=== PATIENT | male | born 1935 | race Two or more races ===

== ENCOUNTER 2023-05-17 02:05 | Emergency (ER) | payer OTHER ==
[~2023-05-17] VITALS: Ht 160 cm; Wt 68.0 kg
[2023-05-17] MEDS ORDERED: TENORMIN25 MG PO (02:24)
[2023-05-17] MEDS ORDERED: VASOFLEX HD CA1 EACH PO (02:24)
[2023-05-17] MEDS ORDERED: ELIQUIS5 MG PO (02:24)
[2023-05-17] MEDS ORDERED: EPLERENONE25 MG (02:25)
[2023-05-17] MEDS ORDERED: IRBESARTAN150 MG PO (02:25)
[2023-05-17 03:38] LABS: HEMATOCRIT 43.1 % (39.0-48.0); HEMOGLOBIN 14.1 g/dL (13-16.00); MEAN CORPUSCULAR HEMOGLOBIN 31.2 pg (27.00-32.0); MEAN CORPUSCULAR HGB CONC 32.8 g/dl (32.0-36.0); RED BLOOD COUNT 4.54 M/uL (4.00-6.00); RED CELL DISTRIBUTION WIDTH 14.2 % (11.5-14.5)
[2023-05-17 03:49] LABS: PLATELET COUNT 110 K/uL (150-450)
[2023-05-17 04:00] LABS: ALBUMIN 4.2 gm/dL (3.4-5.0); BILIRUBIN TOTAL 1.25 mg/dL (0.3-1.2); CALCIUM 9.8 mg/dL (8.5-10.1); CREATININE SERUM 0.76 mg/dL (0.70-1.30); GFR 97.48; GLOBULINA 3.6 G/DL (2.4-3.5); INR 1.26; PARTIAL THROMBOPLASTIN TIME 32.9 SECONDS (22.0-34.0); POTASSIUM 4.39 mEq/L (3.5-5.1); TOTAL PROTEIN 7.8 gm/dL (6.4-8.2)
[2023-05-17 04:29] LABS: PH,URINE 6.5 (5.0-8.0); URINE APPEARANCE Clear; URINE BILIRRUBIN Negative (NEGATIVE); URINE BLOOD Negative; URINE COLOR Yellow; URINE GLUCOSE Negative (NEGATIVE); URINE LEUKOCYTE Negative; URINE NITRATE Negative; URINE PROTEIN Negative (NEGATIVE); URINE UROBILINOGEN 0.2 E.U./dl
[2023-05-17 04:38] LABS: URINE BACTERIA 1.2 uL (0.0-1933); URINE RBC 0.8 uL (0.0-20.8); URINE WBC 0 uL (0.0-23.2)
== END 2023-05-17 12:29 | disposition home or self-care (01) ==
LOC: EDBD 02:05 → ER 02:05
PROVIDERS: General Practice
DX: I48.91 Unspecified atrial fibrillation (principal); I10 Essential (primary) hypertension
CPT/HCPCS: 36415; 71045; 93005; 93041; 96365; 99284; J3490

== ENCOUNTER 2024-03-31 16:42 | Inpatient (IN) | payer OTHER ==
[~2024-03-31] VITALS: Ht 160 cm; Wt 66.7 kg
[~2024-03-31 16:42] MED LIST: ELIQUIS5 MG PO; EPLERENONE25 MG; IRBESARTAN150 MG PO; TENORMIN25 MG PO; VASOFLEX HD CA1 EACH PO
[2024-03-31 16:56] LABS: PH,URINE 6.5 (5.0-8.0); URINE APPEARANCE Clear; URINE BILIRRUBIN Negative (NEGATIVE); URINE BLOOD Negative; URINE COLOR Yellow; URINE GLUCOSE Negative (NEGATIVE); URINE KETONE Negative (NEGATIVE); URINE LEUKOCYTE Negative; URINE NITRATE Negative; URINE PROTEIN Negative (NEGATIVE); URINE UROBILINOGEN 0.2 E.U./dl
[2024-03-31 16:57] LABS: URINE BACTERIA 13.8 uL (0.0-1933)
[2024-03-31 16:58] LABS: URINE EPITHELIAL CELLS 0.6 uL (0.0-38.8); URINE RBC 0.1 uL (0.0-20.8); URINE WBC 0.9 uL (0.0-23.2)
[2024-03-31 17:27] LABS: HEMATOCRIT 35.8 % (39.0-48.0); HEMOGLOBIN 12.4 g/dL (13-16.00); MEAN CELL VOLUME 92.8 fL (80.0-100.00); MEAN CORPUSCULAR HEMOGLOBIN 32.1 pg (27.00-32.0); MEAN CORPUSCULAR HGB CONC 34.6 g/dl (32.0-36.0); RED BLOOD COUNT 3.86 M/uL (4.00-6.00); RED CELL DISTRIBUTION WIDTH 13.8 % (11.5-14.5)
[2024-03-31 17:39] LABS: PLATELET COUNT 103 K/uL (150-450)
[2024-03-31 18:27] LABS: ALBUMIN 4.1 gm/dL (3.4-5.0); BILIRUBIN TOTAL 1.39 mg/dL (0.3-1.2); CALCIUM 9.4 mg/dL (8.5-10.1); CREATININE SERUM 0.86 mg/dL (0.70-1.30); GFR 84.32; GLOBULINA 3.3 G/DL (2.4-3.5); POTASSIUM 4.84 mEq/L (3.5-5.1); T4 FREE 1.46 NG/ML (0.76-1.46); TOTAL PROTEIN 7.4 gm/dL (6.4-8.2); TSH 1.02 uIU/mL (0.358-3.74)
[2024-03-31 19:12] LABS: PROSTATIC SPECIFIC ANTIGEN 8.27 NG/ML (0.010-4.00)
[2024-03-31] MEDS ORDERED: NITROGLYCERIN IN 5 % DEXTROSE 250 ML IV SCH (20:15)
[2024-03-31] MEDS ORDERED: ACETAMINOPHEN 500 MG GEL..CAP PO PRN (20:30)
[2024-03-31] MEDS ORDERED: CLONAZEPAM 0.5 MG TABLET PO SCH (21:00)
[2024-03-31] MEDS ORDERED: NITROGLYCERIN IN 5 % DEXTROSE 50 MG/250 ML BOTTLE IV ONE (21:14)
[2024-03-31 22:57] VITALS: O2SAT 97
[2024-03-31 23:30] VITALS: O2SAT 95
[2024-04-01] VITALS (8 sets, daily range): BP systolic 100–144; BP diastolic 51–65; O2SAT 94–97
[2024-04-01] MEDS ORDERED: FUROsemide 20 MG/2 ML VIAL IV SCH (01:00)
[2024-04-01 07:02] LABS: BLOOD UREA NITROGEN 14 mg/dL (7-18); GLUCOSE FASTING 67 mg/dL (65-100); OSMOLALITY SERUM 248 MOSM/KG (275-295)
[2024-04-01 07:49] LABS: SODIUM 124 mmol/L (136-145)
[2024-04-01] MEDS ORDERED: Cyanocobalamin/Mecobalamin 1 TAB.SL SL SCH (09:00)
[2024-04-01] MEDS ORDERED: ALLOPURINOL 100 MG TABLET PO SCH (09:00)
[2024-04-01] MEDS ORDERED: PANTOPRAZOLE SODIUM 40 MG TABLET.DR PO SCH (09:00)
[2024-04-01] MEDS ORDERED: IRBESARTAN 300 MG TABLET PO SCH (09:00)
[2024-04-01] MEDS ORDERED: MAGNESIUM 100 MG PO SCH (09:00)
[2024-04-01] MEDS ORDERED: BISOPROLOL 5 MG PO SCH (09:00)
[2024-04-01] MEDS ORDERED: WARFARIN SODIUM 5 MG TABLET PO SCH (09:00)
[2024-04-01] MEDS ORDERED: ENOXAPARIN SODIUM 60 MG/0.6 ML SYRINGE SUBCUTANEO SCH (09:00)
[2024-04-01] MEDS ORDERED: FINASTERIDE 5 MG TABLET PO SCH (09:20)
[2024-04-01] MEDS ORDERED: NA PHOS,M-B/NA PHOS,DI-BA 1 BOTTLE ENEMA RECTAL NR ×2 (10:00→23:45)
[2024-04-01 16:31] LABS: FERRITIN 343.5 NG/ML (26-388)
[2024-04-01 16:51] LABS: FOLIC ACID 16.73 ng/ml (4.78-20)
[2024-04-01] MEDS ORDERED: AMLODIPINE BESYLATE 5 MG TABLET PO SCH (17:00)
[2024-04-01] MEDS ORDERED: TAMSULOSIN HCL 0.4 MG CAP PO SCH (17:00)
[2024-04-02] VITALS (8 sets, daily range): BP systolic 102–138; BP diastolic 49–63; O2SAT 94–98
[2024-04-02] MEDS ORDERED: SOD FERRIC GLUC COMPLX/SUCROSE 62.5 MG in 0.9 % SODIUM CHLORIDE 50 ML IV SCH (09:00)
[2024-04-02] MEDS ORDERED: PRAMIPEXOLE 0.125 MG PO SCH (09:00)
[2024-04-02] MEDS ORDERED: AMANTADINE 100 MG PO SCH (09:00)
[2024-04-02] MEDS ORDERED: ISOSORBIDE DINITRATE 5 MG TABLET PO SCH (09:00)
[2024-04-02] MEDS ORDERED: CLONAZEPAM 0.5 MG TABLET PO SCH (09:00)
[2024-04-02] MEDS ORDERED: ADEMPAS 1 MG PO SCH (09:00)
[2024-04-02 14:41] LABS: HEMATOCRIT 32.8 % (39.0-48.0); HEMOGLOBIN 11.3 g/dL (13-16.00); MEAN CELL VOLUME 94.5 fL (80.0-100.00); MEAN CORPUSCULAR HEMOGLOBIN 32.5 pg (27.00-32.0); MEAN CORPUSCULAR HGB CONC 34.4 g/dl (32.0-36.0); RED BLOOD COUNT 3.47 M/uL (4.00-6.00); RED CELL DISTRIBUTION WIDTH 13.8 % (11.5-14.5)
[2024-04-02 14:42] LABS: PLATELET COUNT 117 K/uL (150-450)
[2024-04-03] VITALS (8 sets, daily range): BP systolic 130–131; BP diastolic 67–75; O2SAT 96–99
[2024-04-03] MEDS ORDERED: FUERA DE FORMULARIO 1 U FF PO SCH (09:00)
[2024-04-03 09:21] LABS: PLATELET ESTIMATE NORMAL (NORMAL)
[2024-04-03] MEDS ORDERED: FUROsemide 20 MG TABLET PO NR (10:36)
[2024-04-03] MEDS ORDERED: COSYNTROPIN 0.25 MG VIAL IV SCH (11:00)
[2024-04-03 11:11] LABS: ACTH 9.8 pg/mL (7.2-63.3)
[2024-04-03 15:10] LABS: ANTI CARDIO IGG < 9 GPL U/mL (0-14); ANTI CARDIO IGM 10 MPL U/mL (0-12)
[2024-04-03 19:55] LABS: ALBUMIN 3.4 gm/dL (3.4-5.0); BILIRUBIN TOTAL 1.14 mg/dL (0.3-1.2); CREATININE SERUM 0.9 mg/dL (0.70-1.30); GFR 80.01; GLOBULINA 2.8 G/DL (2.4-3.5); POTASSIUM 4.23 mEq/L (3.5-5.1); TOTAL PROTEIN 6.2 gm/dL (6.4-8.2)
[2024-04-04] VITALS (9 sets, daily range): BP systolic 107–132; BP diastolic 59–63; O2SAT 97–100
[2024-04-04] MEDS ORDERED: FUROsemide 20 MG TABLET PO SCH (09:00)
[2024-04-04 12:54] LABS: ob NEGATIVE (NEGATIVE)
[2024-04-04 15:10] LABS: dRVVT 67.8 sec (0.0-47.0); interp Comment: (.); ptt-la 52.9 sec (0.0-43.5)
[2024-04-05] VITALS (7 sets, daily range): BP systolic 115–153; BP diastolic 54–65; O2SAT 97–100
[2024-04-05 05:19] LABS: INR 1.13; PROTHROMBIN TIME 12.2 SECONDS (9.0-11.5)
[2024-04-05 05:30] LABS: CALCIUM 8.9 mg/dL (8.5-10.1); CREATININE SERUM 0.67 mg/dL (0.70-1.30); GFR 112.47; POTASSIUM 3.96 mEq/L (3.5-5.1)
[2024-04-05 05:31] LABS: PROSTATIC SPECIFIC ANTIGEN 6.23 NG/ML (0.010-4.00)
[2024-04-05 05:32] LABS: PARTIAL THROMBOPLASTIN TIME 48.5 SECONDS (22.0-34.0)
[2024-04-05] MEDS ORDERED: BUMETANIDE 1 MG TABLET PO SCH (09:00)
[2024-04-06] VITALS (9 sets, daily range): BP systolic 118–130; BP diastolic 59–63; O2SAT 96–100
[2024-04-07 01:48] VITALS: BP 123/53
[2024-04-07 02:07] VITALS: O2SAT 97
[2024-04-07 05:29] VITALS: O2SAT 95
[2024-04-07 08:00] VITALS: BP 140/72; O2SAT 100
[2024-04-07 08:02] VITALS: O2SAT 99
[2024-04-07 08:05] LABS: HEMATOCRIT 32.4 % (39.0-48.0); MEAN CELL VOLUME 94.5 fL (80.0-100.00); MEAN CORPUSCULAR HEMOGLOBIN 31.9 pg (27.00-32.0); MEAN CORPUSCULAR HGB CONC 33.8 g/dl (32.0-36.0); RED BLOOD COUNT 3.43 M/uL (4.00-6.00)
[2024-04-07] MEDS ORDERED: TAMS0.4C PO (08:34)
[2024-04-07] MEDS ORDERED: ELIQUIS5 MG PO (08:35)
[2024-04-07] MEDS ORDERED: AMLODIPINE BESYL5 MG PO (08:35)
[2024-04-07] MEDS ORDERED: ISOSORBIDE DINIT5 MG PO (08:36)
[2024-04-07] MEDS ORDERED: AVAPRO300 MG PO (08:36)
[2024-04-07] MEDS ORDERED: PANTOPRAZOLE SO40 MG PO (08:37)
[2024-04-07] MEDS ORDERED: CLONAZEPAM0.5 MG PO (08:37)
[2024-04-07] MEDS ORDERED: BUMETANIDE1 MG PO (08:37)
[2024-04-07] MEDS ORDERED: ZYLOPRIM100 M1 PO (08:37)
[2024-04-07] MEDS ORDERED: FINASTERIDE5 MG PO (08:37)
[2024-04-07] MEDS ORDERED: POM (MEDICAMENTO EN PO ×2 (08:38)
[2024-04-07] MEDS ORDERED: PRAMIPEXOLE PO (08:39)
[2024-04-07 10:34] LABS: PLATELET COUNT 142 K/uL (150-450)
[2024-04-07 23:09] LABS: ALDOSTERONE SERUM < 1.0 ng/dL (0.0-30.0)
== END 2024-04-07 13:59 | disposition home or self-care (01) | DRG 291 ==
LOC: MEDJ 16:42 → MEDI 19:09
PROVIDERS: Internal Medicine; Internal Medicine Hematology & Oncology; ADMIT Internal Medicine; ATTEND Internal Medicine
PROC: 4A12X4Z Monitoring of Cardiac Electrical Activity, External Approach (ICD-10-PCS; 2024-03-31)
PROC: BW21ZZZ Computerized Tomography (CT Scan) of Abdomen and Pelvis (ICD-10-PCS; principal; 2024-04-01)
PROC: BD4CZZZ Ultrasonography of Rectum (ICD-10-PCS; 2024-04-01)
PROC: B24BZZZ Ultrasonography of Heart with Aorta (ICD-10-PCS; 2024-04-01)
PROC: BW40ZZZ Ultrasonography of Abdomen (ICD-10-PCS; 2024-04-02)
PROC: BW24YZZ Computerized Tomography (CT Scan) of Chest and Abdomen using Other Contrast (ICD-10-PCS; 2024-04-02)
DX: I11.0 Hypertensive heart disease with heart failure (principal); I50.33 Acute on chronic diastolic (congestive) heart failure; E27.40 Unspecified adrenocortical insufficiency; E87.0 Hyperosmolality and hypernatremia; D68.62 Lupus anticoagulant syndrome; E78.5 Hyperlipidemia, unspecified; I48.91 Unspecified atrial fibrillation; I07.1 Rheumatic tricuspid insufficiency; I27.20 Pulmonary hypertension, unspecified; D69.6 Thrombocytopenia, unspecified; F41.9 Anxiety disorder, unspecified